=== PATIENT | female | born 1960 | race African-American/Black ===

== ENCOUNTER 2018-11-12 07:42 | Inpatient (IN) | payer MEDICAID ==
[~2018-11-12] VITALS: Ht 165.1 cm; Wt 69.9 kg
[~2018-11-12 07:42] MED LIST: ALBU18HF2 IH; FLUT1AER IH
[2018-11-12] MEDS ORDERED: ONDANSETRON HCL 4MG/2ML INJ IV PRN ×2 (08:30→17:00)
[2018-11-12] MEDS ORDERED: MAGNESIUM HYDROXIDE 400MG/5ML 30ML UDC PO PRN (08:30)
[2018-11-12] MEDS ORDERED: ACETAMINOPHEN 325MG TABLET PO PRN (08:30)
[2018-11-12] MEDS ORDERED: LACTATED RINGERS 1,000 ML IV SCH (08:30)
[2018-11-12 08:38] LABS: CLARITY URINE CLEAR (CLEAR); COLOR URINE YELLOW (YELLOW); KETONES URINE NEGATIVE (NEGATIVE); LEUKOCYTE ESTERASE URINE NEGATIVE (NEGATIVE); NITRITE URINE NEGATIVE (NEGATIVE); OCCULT BLOOD URINE NEGATIVE (NEGATIVE); PROTEIN URINE NEGATIVE (NEGATIVE); SPECIFIC GRAVITY URINE 1.021 (1.005-1.030); UROBILINOGEN URINE 0.2 E.U./dL (0.2-1.0)
[2018-11-12 08:53] LABS: BASOPHILS % 0.6 % (0.0-2.0); HEMATOCRIT. 37.7 % (36.0-48.0); HEMOGLOBIN. 12.7 g/dL (12.0-16.0); LYMPHOCYTES % 35.2 % (20.0-50.0); MEAN CORPUSCULAR HEMOGLOBIN 32.2 pg (28.0-32.0); MEAN CORPUSCULAR VOLUME 95.4 fL (81.0-99.0); MEAN PLATELET VOLUME 8.6 fl (7.4-10.4); MONOCYTES % 4.8 % (2.0-8.0); NEUTROPHILS % 57.4 % (40.0-76.0); PLATELET 293 x1000/uL (130-400); RED BLOOD CELL COUNT 3.95 mill/uL (4.2-5.4); RED CELL DISTRIBUTION WIDTH 13.6 % (11.6-14.6)
[2018-11-12 08:56] LABS: PARTIAL THROMBOPLASTIN TIME 24.5 sec (23.4-31.0)
[2018-11-12] MEDS: DOCUSATE SODIUM 100MG CAPSULE PO SCH ×2 (09:00→17:00)
[2018-11-12 09:52] LABS: CHLORIDE 105 mEq/L (98-107)
[2018-11-12] MEDS ORDERED: MORPHINE SULFATE/PF 1MG/ML 10ML AMP ONE (12:23)
[2018-11-12] MEDS ORDERED: NORMAL SALINE 0.9% 10 ML SYR ONE (12:23)
[2018-11-12] MEDS ORDERED: BACITRACIN 50,000 UNITS/VIAL ONE (12:23)
[2018-11-12] MEDS ORDERED: EPINEPHRINE 1:1000 1 MG/ML AMP ONE (12:23)
[2018-11-12] MEDS ORDERED: TRANEXAMIC ACID 1,000 MG in SODIUM CHLORIDE 0.9% 100 ML IV NR (12:30)
[2018-11-12] MEDS ORDERED: ETOMIDATE 2MG/ML 10ML VIAL IV ONE (12:40)
[2018-11-12] MEDS ORDERED: EPHEDRINE SULFATE 50MG/ML VIAL ONE (12:40)
[2018-11-12] MEDS ORDERED: PHENYLEPHRINE HCL 10 MG/ML 1ML (IV VIAL) IV ONE (12:41)
[2018-11-12] MEDS ORDERED: ROCURONIUM BROMIDE 10MG/ML VIAL 5ML IV ONE ×2 (12:41→14:55)
[2018-11-12] MEDS ORDERED: FENTANYL CITRATE/PF 50MCG/ML 2ML VIAL ONE (12:44)
[2018-11-12] MEDS ORDERED: GLYCOPYRROLATE 0.2 MG/ML 2ML VIAL ONE ×2 (12:51→16:00)
[2018-11-12] MEDS ORDERED: MIDAZOLAM HCL 2 MG/2 ML VIAL ONE ×2 (12:55→13:11)
[2018-11-12] MEDS ORDERED: BUPIVACAINE HCL/DEXTROSE/PF 0.75% 2ML AMP INJ ONE (13:08)
[2018-11-12] MEDS ORDERED: CEFAZOLIN SODIUM 1000MG/VIAL ONE (13:34)
[2018-11-12] MEDS ORDERED: VANCOMYCIN HCL 500 MG/VIAL ONE (13:56)
[2018-11-12] MEDS ORDERED: ONDANSETRON HCL 4MG/2ML INJ ONE (16:00)
[2018-11-12] MEDS ORDERED: METOCLOPRAMIDE HCL 10MG/2ML VIAL ONE (16:00)
[2018-11-12] MEDS ORDERED: SKIN ADHESIVE 0.7 GM EA TOP ONE (16:08)
[2018-11-12] MEDS ORDERED: SODIUM CHLORIDE 0.9% 1,000 ML IV ONE (16:46)
[2018-11-12] MEDS ORDERED: MEPERIDINE HCL/PF 25MG/ML CPJ IV PRN ×2 (17:00)
[2018-11-12] MEDS ORDERED: MORPHINE SULFATE 2 MG/ML CPJ (NOT FOR IM USE) IV PRN (17:00)
[2018-11-12] MEDS: HYDROMORPHONE HCL/PF 2MG/ML CPJ IV PRN ×3 (17:54→20:11)
[2018-11-12] MEDS ORDERED: MORPHINE PCA 50MG/50ML IV PRN (18:45)
[2018-11-12] MEDS ORDERED: ONDANSETRON INJ IV PRN (18:45)
[2018-11-12] MEDS ORDERED: DIPHENHYDRAMINE INJ IV PRN (18:45)
[2018-11-12] MEDS ORDERED: NALOXONE INJ IV PRN (18:45)
[2018-11-12 20:30] VITALS: BP 118/70
[2018-11-13] VITALS (8 sets, daily range): BP systolic 95–125; BP diastolic 43–74
[2018-11-13] MEDS: CEFAZOLIN 2,000 MG in DEXT 5% WATER 100 ML IV SCH ×2 (00:48→09:56)
[2018-11-13 06:30] LABS: BASOPHILS % 0.2 % (0.0-2.0); EOSINOPHILS % 1.7 % (0.0-5.0); HEMATOCRIT. 28.6 % (36.0-48.0); HEMOGLOBIN. 9.9 g/dL (12.0-16.0); MEAN CORPUSCULAR HEMOGLOBIN 33.1 pg (28.0-32.0); MEAN PLATELET VOLUME 8.8 fl (7.4-10.4); MONOCYTES % 5.5 % (2.0-8.0); NEUTROPHILS % 69.6 % (40.0-76.0); PLATELET 246 x1000/uL (130-400); RED BLOOD CELL COUNT 2.98 mill/uL (4.2-5.4)
[2018-11-13 06:52] LABS: CHLORIDE 104 mEq/L (98-107)
[2018-11-13] MEDS: HYDROCODONE/ACETAMINOPHEN 10/325MG TABLET PO PRN ×6 (07:27→23:40)
[2018-11-13] MEDS: DOCUSATE SODIUM 100MG CAPSULE PO SCH ×2 (09:57→17:37)
[2018-11-13] MEDS ORDERED: ENOXAPARIN 40MG/0.4ML SYR SUBCUT SCH (21:00)
[2018-11-14] VITALS: BP 96/54
[2018-11-14 04:00] VITALS: BP 94/58
[2018-11-14] MEDS: HYDROCODONE/ACETAMINOPHEN 10/325MG TABLET PO PRN ×2 (07:07→11:45)
[2018-11-14 08:00] VITALS: BP 104/56
[2018-11-14 09:07] LABS: BASOPHILS % 0.3 % (0.0-2.0); HEMATOCRIT. 26.7 % (36.0-48.0); HEMOGLOBIN. 9.4 g/dL (12.0-16.0); LYMPHOCYTES % 7.5 % (20.0-50.0); MEAN CORPUSCULAR HEMOGLOBIN 33.8 pg (28.0-32.0); MEAN CORPUSCULAR VOLUME 96.4 fL (81.0-99.0); MEAN PLATELET VOLUME 8.3 fl (7.4-10.4); MONOCYTES % 4.5 % (2.0-8.0); NEUTROPHILS % 86.7 % (40.0-76.0); PLATELET 222 x1000/uL (130-400); RED BLOOD CELL COUNT 2.77 mill/uL (4.2-5.4); RED CELL DISTRIBUTION WIDTH 13.9 % (11.6-14.6)
[2018-11-14] MEDS ORDERED: DIPHENHYDRAMINE 25MG CAPSULE PO NR (10:15)
[2018-11-14] MEDS: DOCUSATE SODIUM 100MG CAPSULE PO SCH (11:05)
[2018-11-14 11:17] VITALS: BP 132/82
[2018-11-14 11:23] VITALS: BP 132/82
[2018-11-14 12:27] VITALS: BP 111/64
== END 2018-11-14 13:30 | disposition home health service (06) | DRG 301 ==
LOC: OR 07:42 → 6EST 21:00
PROVIDERS: ADMIT Internal Medicine; ATTEND Internal Medicine
PROC: 0SR90JA Replacement of Right Hip Joint with Synthetic Substitute, Uncemented, Open Approach (ICD-10-PCS; principal; 2018-11-12)
DX: M16.11 Unilateral primary osteoarthritis, right hip (principal); E66.01 Morbid (severe) obesity due to excess calories; I95.9 Hypotension, unspecified; G89.29 Other chronic pain; M65.9 Synovitis and tenosynovitis, unspecified; D64.9 Anemia, unspecified; J45.909 Unspecified asthma, uncomplicated; I10 Essential (primary) hypertension; Z90.49 Acquired absence of other specified parts of digestive tract; Z98.84 Bariatric surgery status; Z98.891 History of uterine scar from previous surgery; Z87.891 Personal history of nicotine dependence; Z68.25 Body mass index [BMI] 25.0-25.9, adult
CPT/HCPCS: 36415; 72170; 73502; 80048; 80061; 83036; 86850; 86900; 88305; 88311; 97110; 97116; 97162; 97166; 97530; 97535; C1776; J0690; J1170; J1650; J2250; J2270; J2274; J2370; J2405; J2765; J3010; J3370; J3490; J7050; J7060; Q0163